=== PATIENT | male | born 1980 | race Caucasian/White ===

== ENCOUNTER 2020-10-11 15:03 | Emergency (ER) | payer BC ==
[2020-10-11] MEDS ORDERED: cefTRIAXone 1 GM Vial IM ONE (15:12)
[2020-10-11] MEDS ORDERED: Lidocaine 1% 10 ML MDV INJECT ONE (15:13)
--- NOTE | 2020-10-11 15:15 | EDM.PDOC ---
ED HPI GENERAL MEDICAL PROBLEM - General Chief Complaint: Laceration Stated Complaint: CUT FINGER Time Seen by Provider: 10/11/20 15:05 Source of Information: Reports: Patient History Limitations: Reports: No Limitations - History of Present Illness INITIAL COMMENTS - FREE TEXT/NARRATIVE: presented to the ER with an amputation to the left index finger. 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 He applied pressure on it and wrapped it with a compression bandage and presented to the ER. He also brought with him a detached tip of his finger. no known medical illnesses. Last tetanus was +10 yrs ago. Denies pain at the moment Onset: Today Duration: Hour(s): (1) Location: Reports: Upper Extremity, Left - Related Data Allergies Allergy/AdvReac Type Severity Reaction Status Date / Time No Known Allergies Allergy Verified 10/11/20 15:13 Home Meds: Home Meds NK [No Known Home Meds] 10/11/20 [History] Review of Systems - Review of Systems Review Of Systems: See Below Constitutional: Reports: No Symptoms Eyes: Reports: No Symptoms Ears: Reports: No Symptoms Respiratory: Reports: No Symptoms Cardiovascular: Reports: No Symptoms GI/Abdominal: Reports: No Symptoms Genitourinary: Reports: No Symptoms Neurological: Reports: No Symptoms ED EXAM, GENERAL - Physical Exam Exam: See Below Exam Limited By: No Limitations General Appearance: Alert, WD/WN, No Apparent Distress Eye Exam: Bilateral Eye: PERRL Head: Atraumatic, Normocephalic Neck: Normal Inspection Respiratory/Chest: No Respiratory Distress, Normal Breath Sounds Cardiovascular: Normal Peripheral Pulses, Regular Rate, Rhythm Extremities: Other (left index finger tip is missing - including the nail. no active bleeding seen. palpable bone fragments.) Neurological: Alert, Oriented, Normal Cognition Psychiatric: Normal Affect, Normal Mood Skin Exam: Warm, Dry ED TRAUMA EXTREMITY PROCEDURES - Laceration/Wound Repair Left Upper Digit - 2nd (Index) Lac/Wound Length In cm: 2.5 Appearance: Superficial, Subcutaneous, Muscle, Irregular Anesthetic Type: Local Local Anesthesia - Lidocaine (Xylocaine): 2% Plain Local Anesthetic Volume: 5cc Skin Prep: Chlorhexidine (Hibiciens), Providone-Iodine (Betadine) Exploration/Debridement/Repair: Wound Explored, Explored to Base, Moderate Debridement, No Foreign Material Found, Multiple Flaps Aligned Closed With: Sutures Suture Size: 4-0 # of Sutures: 4 Suture Type: Interrupted - Additional/Other Procedure(s) Other (Free Text) Procedure(s): near complete finger amputation - in local anesthesia and sterile procedural protocol - distal bony fragment was removed using bone cutter and dissection device. hemostasis was achieved. distal bony fragment was removed. patient tolerated the procedure well stump - flap was created. 4 non-abs sutures were applied local abx ointment on top and sterile dressing Course - Vital Signs Last Recorded V/S: Last Vital Signs Temp 36.1 C 10/11/20 16:05 Pulse 87 10/11/20 16:05 Resp 18 10/11/20 16:05 BP 137/87 10/11/20 16:05 Pulse Ox 97 10/11/20 16:05 - Orders/Labs/Meds Orders: Active Orders 24 hr Category Date Time Status Vaccines to be Administered [RC] PER UNIT ROUTINE Care 10/11/20 15:44 Active Fingers Second Digit Lt F1 [CR] Stat Exams 10/11/20 15:11 Taken Meds: Medications Discontinued Medications Generic Name Dose Route Start Last Admin Trade Name Elverq PRN Reason Stop Dose Admin Ceftriaxone Sodium 1 gm 10/11/20 15:12 10/11/20 15:43 Rocephin IM 10/11/20 15:13 1 gm ONETIME ONE Administration Ceftriaxone Sodium Confirm 10/11/20 15:33 10/11/20 15:44 Rocephin Administered 10/11/20 15:34 Not Given Dose 1 gm .ROUTE .STK-MED ONE Diphtheria/Tetanus/Acell Pertussis 0.5 ml 10/11/20 15:44 10/11/20 16:03 Boostrix IM 10/11/20 15:45 0.5 ml .ONCE ONE Administration Lidocaine HCl 10 ml 10/11/20 15:13 10/11/20 15:44 Xylocaine 1% INJECT 10/11/20 15:14 10 ml ONETIME ONE Administration - Re-Assessments/Exams Free Text/Narrative Re-Assessment/Exam: tdap was updated xrays obtained surgical procedure completed well tolerated d/c home on abx and pain meds f/u with PCP in 7-10 days Departure - Departure Time of Disposition: 17:02 Disposition: Home, Self-Care 01 Condition: Good Clinical Impression: Finger amputation, traumatic - Discharge Information *PRESCRIPTION DRUG MONITORING PROGRAM REVIEWED*: Not Applicable *COPY OF PRESCRIPTION DRUG MONITORING REPORT IN PATIENT MICHEAL: Not Applicable Instructions: Laceration Care, Adult Referrals: PCP,None [Primary Care Provider] - Forms: ED Department Discharge Additional Instructions: - avoid getting your wound wet for the first 72 hrs - take antibiotics as prescribed - daily dressing changes - apply antibiotics on the wound ( bacitracin or haleigh-sporin ) - return after 7-10 days for suture removal - watch for signs of wound infection - return to the ER if any. Sepsis Event Note (ED) - Focused Exam Vital Signs: Vital Signs Temp Pulse Resp BP Pulse Ox 10/11/20 16:05 36.1 C 87 18 137/87 97 10/11/20 15:16 36.1 C 103 H 18 158/101 H 97 - Problem List & Annotations (1) Finger amputation, traumatic SNOMED Code(s): 86518562 Code(s): S68.119A - COMPLETE TRAUMATIC MCP AMPUTATION OF UNSP FINGER, INIT Status: Acute Priority: High Current Visit: Yes Qualifiers: Encounter type: initial encounter Qualified Code(s): S68.119A - Complete traumatic metacarpophalangeal amputation of unspecified finger, initial encounter - Problem List Review Problem List Initiated/Reviewed/Updated: Yes - My Orders Last 24 Hours: My Active Orders 10/11/20 15:11 Fingers Second Digit Lt F1 [CR] Stat 10/11/20 15:44 Vaccines to be Administered [RC] PER UNIT ROUTINE - Assessment/Plan Last 24 Hours: My Active Orders 10/11/20 15:11 Fingers Second Digit Lt F1 [CR] Stat 10/11/20 15:44 Vaccines to be Administered [RC] PER UNIT ROUTINE Plan: - avoid getting your wound wet for the first 72 hrs - take oral antibiotics as prescribed - daily dressing changes - apply antibiotics on the wound ( bacitracin or haleigh-sporin ) - return after 7-10 days for suture removal - watch for signs of wound infection - return to the ER if any.
[2020-10-11] MEDS ORDERED: cefTRIAXone 1 GM Vial ONE (15:33)
[2020-10-11] MEDS ORDERED: Diphtheria,Pertussis(Acell),Tetanus Vaccine 0.5 ML SDV IM ONE (15:44)
[2020-10-11] MEDS ORDERED: Amoxicillin 500 MG Cap ONE (17:00)
[2020-10-11] MEDS ORDERED: traMADol 50 MG Tab ONE (17:00)
--- NOTE | 2020-10-12 08:36 | CR ---
DATE OF SERVICE: 10/11/20 CLINICAL DATA: portable LEFT 2ND DIGIT: There is partial amputation of the distal phalanx of the 2nd digit. There are small osseous fragments within the adjacent soft tissues. No other acute abnormalities. [id number] [facility]
== END 2020-10-11 17:06 | disposition home or self-care (01) ==
LOC: LB.ED 15:03
DX: S68.621A Partial traumatic transphalangeal amputation of left index finger, initial encounter (principal); Z23 Encounter for immunization; W29.3XXA Contact with powered garden and outdoor hand tools and machinery, initial encounter
CPT/HCPCS: 26952; 73140; 90471; 90715; 96372; 99284; A9270; J0696; J2001